=== PATIENT | female | born 1950 | race Caucasian/White ===

== ENCOUNTER 2023-01-03 10:19 | Inpatient (IN) | payer MEDICARE, BC ==
[~2023-01-03] VITALS: Ht 157.5 cm; Wt 47.6 kg
[2023-01-03] MEDS ORDERED: IV NORMAL SALINE 500 ML BAG IV ONE (11:00)
[2023-01-03] MEDS ORDERED: MAG HYDROX/AL HYDROX/SIMETH 30 ML LIQUID UDC PO ONE (11:00)
[2023-01-03] MEDS ORDERED: FAMOTIDINE. 20 MG/2 ML VIAL IV ONE ×2 (11:00→11:13)
--- NOTE | 2023-01-03 11:10 | NUR ---
Pt arrived in ED, accompanied by SO, w/ c/o upper abdominal pain, 5/10 x 3D, nausea and diarrhea x3D. Seen by Dr. Shea for MSE.
[2023-01-03] MEDS ORDERED: MAG HYDROX/AL HYDROX/SIMETH 30 ML LIQUID UDC ONE (11:13)
[2023-01-03 11:24] LABS: HEMATOCRIT 42.4 % (31.2-41.9); MEAN CORPUSCULAR HEMOGLOBIN 32.4 uug (24.7-32.8); MEAN CORPUSCULAR VOLUME 94.7 fL (75.5-95.3); PLATELET COUNT (AUTO) 202 K/uL (179-408)
[2023-01-03 11:28] LABS: *BILIRUBIN,URIN NEGATIVE (NEGATIVE); *BLOOD, URINE 1+ (NEGATIVE); *CLARITY,URINE CLEAR (CLEAR); *COLOR,URINE YELLOW (YELLOW); *KETONES,URINE NEGATIVE (NEGATIVE); *UROBILINOGEN,URINE 0.2 E.U./dl (NORMAL); LEUKOCYTE ESTERASE ,URINE NEGATIVE (NEGATIVE); NITRITE, URINE NEGATIVE (NEGATIVE); UGLUCOSE NEGATIVE (NEGATIVE)
[2023-01-03] MEDS ORDERED: IOHEXOL 350 100 ML INFUS..BTL ONE (11:33)
[2023-01-03] MEDS ORDERED: IV NORMAL SALINE 250 ML IV ONE (11:33)
[2023-01-03] MEDS ORDERED: SWABABLE VALVE TRANSFER SET EA MC ONE (11:33)
[2023-01-03 11:36] LABS: CARBON DIOXIDE 28 mmol/L (21-32); CHLORIDE 104 mmol/L (98-107); CREATININE 0.9 mg/dL (0.6-1.3); GLUCOSE 101 mg/dL (74-106); POTASSIUM 3.8 mmol/L (3.5-5.1); UREA NITROGEN, BLOOD 13 mg/dL (7-18)
[2023-01-03 11:45] LABS: ALANINE AMINOTRANSFERASE 24 U/L (14-59); ALKALINE PHOSPHATASE 89 U/L (50-136); ASPARTATE AMINOTRANSFERASE 19 U/L (15-37); BILIRUBIN,DIRECT 0.2 mg/dL (0.0-0.2); BILIRUBIN,TOTAL 0.9 mg/dL (0.2-1.0); TOTAL PROTEIN, SERUM 7.7 g/dL (6.4-8.2)
[2023-01-03 11:59] LABS: LIPASE 333 U/L (73-393)
--- NOTE | 2023-01-03 12:01 | NUR ---
Reinserted new IV line on R AC d/t CT Angio and Abd/Pelvis w/ contrast procedure. Pt aware and agreed.
[2023-01-03 12:15] LABS: BACTERIA,URINE NONE SEEN /HPF (NONE SEEN); SQUAMOUS EPITHELIAL CELL,UR MANY /HPF (NONE SEEN); WBC,URINE 0-3 /HPF (0-3)
--- NOTE | 2023-01-03 13:00 | NUR ---
Pt stated that after the trip from CT procedure, she's experiencing pain in the chest and pressure radiating to the back, rated 5/10. MD notified and seen the pt.
[2023-01-03] MEDS ORDERED: ACETAMINOPHEN 325 MG TABLET PO ONE (13:15)
[2023-01-03] MEDS ORDERED: ACETAMINOPHEN 325 MG TABLET ONE (13:15)
--- NOTE | 2023-01-03 14:36 | NUR ---
Pt will be admitted under the medical care of Cole Aldana NP, telemetry. Pt will be assigned to [facility] under the care of nurse Reyes.
--- NOTE | 2023-01-03 14:51 | NUR ---
Report given to Jeri YAN.
--- NOTE | 2023-01-03 15:50 | NUR ---
Received patient from home via ER, 72 y/o with cc of chest pain, epigastric pain, diarrhea, nausea and vomiting for 3 days. Awake oriented x 3. Complaining of mild bearable chest pressure. SR on monitor, initial assessment initiated. Hospitalist notified of admission. Patient will be closely monitored.
--- NOTE | 2023-01-03 15:55 | NUR ---
Pt remained stable, V/S WNL, afebrile, AOx3. Transported pt to Telemetry unit, Rm 302, received by Amy YAN and Marilu YAN.
[2023-01-03 16:40] VITALS: BP 132/60
[2023-01-03] MEDS ORDERED: NITROGLYCERIN 0.4 MG/TAB BOTTLE SL PRN (16:45)
[2023-01-03] MEDS ORDERED: ACETAMINOPHEN 325 MG TABLET PO PRN (16:45)
[2023-01-03] MEDS ORDERED: MAG HYDROX/AL HYDROX/SIMETH 30 ML LIQUID UDC PO PRN (16:45)
[2023-01-03] MEDS ORDERED: ZOLPIDEM 5 MG TABLET PO PRN (16:45)
[2023-01-03] MEDS ORDERED: MORPHINE SULFATE 2 MG/1 ML DISP.SYRIN IV PRN (16:45)
[2023-01-03] MEDS ORDERED: MAGNESIUM HYDROXIDE 30 ML LIQUID UDC PO PRN (16:45)
[2023-01-03] MEDS ORDERED: ONDANSETRON 4 MG/2 ML VIAL IV PRN (16:45)
[2023-01-03] MEDS ORDERED: REMEDY ESSENTIAL ZINC PASTE 113 GM TP PRN (16:45)
--- NOTE | 2023-01-03 18:10 | NUR ---
Patient seen comfortable in bed, No signs of distress and discomfort. Kept rested, needs attended. NSR on tele monitor at 75bpm
[2023-01-03 20:00] VITALS: BP 112/61
--- NOTE | 2023-01-03 20:21 | NUR ---
patient in bed when rounds made AAOX4, no respiratory distress breathing even and unlabored . patient denies pain at this time . advised to call for assistance call light placed with in reach . visitor came to see patient .
--- NOTE | 2023-01-03 21:23 | NUR ---
patient called requesting for mediation for her stomach and she feels nauseous ,informed patient that she got her Maalox at arounds 1800, given Zofran instead advised to call is symptoms continue, given water per patient request .
--- NOTE | 2023-01-03 22:38 | NUR ---
patient called and requesting medication for sleep given Martin prn for sleep .
[2023-01-04] VITALS: BP 114/49
--- NOTE | 2023-01-04 03:00 | NUR ---
rounds made patient in bed sleeping ,easily arousable ,open eyes asked patient if shes ok and if she needs something or if shes in pain she said no shes fine went back to sleep.
[2023-01-04 04:00] VITALS: BP 111/40
[2023-01-04 07:01] LABS: HEMATOCRIT 40.8 % (31.2-41.9); MEAN CORPUSCULAR HEMOGLOBIN 32.2 uug (24.7-32.8); PLATELET COUNT (AUTO) 198 K/uL (179-408)
[2023-01-04 07:16] LABS: CREATININE 0.8 mg/dL (0.6-1.3); MAGNESIUM 2.1 mg/dL (1.8-2.4); PHOSPHOROUS 4.1 mg/dL (2.5-4.9); POTASSIUM 4.1 mmol/L (3.5-5.1)
[2023-01-04 07:25] LABS: BILIRUBIN,DIRECT 0.1 mg/dL (0.0-0.2); BILIRUBIN,TOTAL 0.6 mg/dL (0.2-1.0); TOTAL PROTEIN, SERUM 6.9 g/dL (6.4-8.2)
--- NOTE | 2023-01-04 07:47 | NUR ---
Received patient on bed awake, alert and oriented. No signs of distress, no complain of pain made. NSR on tele monitor.
[2023-01-04 07:52] LABS: THYROID STIMULATING HORMONE 0.726 mIU/mL (0.358-3.740)
[2023-01-04] MEDS ORDERED: PANTOPRAZOLE SODIUM 40 MG TABLET.DR PO SCH (09:00)
[2023-01-04] MEDS ORDERED: ASPIRIN 81 MG TAB.CHEW PO SCH (09:00)
[2023-01-04] MEDS ORDERED: PANTOPRAZOLE SODIUM 40 MG VIAL IV SCH (09:00)
[2023-01-04 11:10] VITALS: BP 119/63
[2023-01-04] MEDS ORDERED: PANT40TA2 PO (11:49)
--- NOTE | 2023-01-04 14:25 | NUR ---
Patient for discharged, removed IV line aseptically. Provided patient instructions and forms for discharge. Patient went down ambulating, alert and coherent. Assisted well, no complains. Discharged
== END 2023-01-04 13:30 | disposition home or self-care (01) | DRG 392 ==
LOC: ER 10:19 → TELE3 15:05
PROVIDERS: ADMIT Nurse Practitioner Acute Care; ATTEND Nurse Practitioner Acute Care
DX: K21.00 Gastro-esophageal reflux disease with esophagitis, without bleeding (principal); K58.9 Irritable bowel syndrome, unspecified; Z79.82 Long term (current) use of aspirin; Z88.1 Allergy status to other antibiotic agents; Z88.2 Allergy status to sulfonamides; Z20.822 Contact with and (suspected) exposure to COVID-19
CPT/HCPCS: 36415; 71045; 71275; 83605; 83690; 83735; 84100; 84443; 84484; 85025; 85730; 86850; 86900; 86901; 93005; A4663; G0378; J2405; J3490; J7040; Q9967